=== PATIENT | female | born 1955 | race Caucasian/White ===

== ENCOUNTER 2019-07-09 14:29 | Inpatient (IN) ==
[2019-07-09] MEDS ORDERED: NS 1,000 ML IV ONE (15:07)
[2019-07-09 16:01] LABS: URINE SOURCE CLEAN CATCH
[2019-07-09 16:06] LABS: BASO# 0.03 X1000 (0.0-0.2); BASO% 0.2 % (0.0-0.8); EOS# 0.13 X1000 (0.0-0.7); EOS% 1.1 % (0.0-10.0); HEMATOCRIT 42.3 % (37.0-47.0); IMM GRAN# 0.04 X1000 (0.0-0.04); IMM GRAN% 0.3 % (0.0-0.5); LYMPH# 1.71 X1000 (1.2-3.4); LYMPH% 13.9 % (20.5-51.1); MCHC 33.1 g/dL (33-37); MCV 93.8 FL (81-99); MONO% 8.1 % (1.7-9.3); MPV 10.4 FL (7.4-10.4); NEUT# 9.39 X1000 (1.4-6.5); NEUT% 76.4 % (42.2-75.2); PLT 250 X1000 (130-400); RBC 4.51 XMIL (4.2-5.4)
[2019-07-09 16:07] LABS: BILIRUBIN URINE NEGATIVE (NEGATIVE); BLOOD URINE NEGATIVE (NEGATIVE); COLOR YELLOW; GLUCOSE URINE NEGATIVE (NEGATIVE); KETONE URINE NEGATIVE (NEGATIVE); NITRITE URINE NEGATIVE (NEGATIVE); PROTEIN URINE NEGATIVE (NEGATIVE); SP GRAVITY URINE 1.005; TURBIDITY URINE CLEAR (CLEAR); UROBILINOGEN URINE 2 mg/dL (NORMAL)
[2019-07-09 16:23] LABS: LEUKOCYTES URINE SMALL (NEGATIVE); UR EPITHELIAL CELLS <10 /HPF (<10); URINE BACTERIA NEGATIVE /HPF; URINE RBC <10 /HPF (<10); URINE WBC <10 /HPF (<10)
[2019-07-09 16:29] LABS: AGAP 17; ALB/GLOB RATIO 1.3; ALBUMIN 4.3 g/dL (3.5-5.0); ALKALINE PHOSPHATASE 125 U/L (32-104); AMYLASE 27 U/L (20-200); BUN 9 mg/dL (8-22); CALCIUM 9.8 mg/dL (8.8-10.2); CHLORIDE 95 mmol/L (98-107); COSMO 274; CREATININE 0.8 mg/dL (0.5-0.9); ESTIMATED GFR > 60; GLUCOSE 129 mg/dL (70-104); GOT 55 U/L (10-30); GPT 53 U/L (10-36); LIPASE 15 U/L (13-60); POTASSIUM 3.7 mmol/L (3.5-5.1); SODIUM 137 mmol/L (136-145); TCO2 25 mmol/L (25-35); TOTAL BILIRUBIN 1.21 mg/dL (0.20-1.00); TOTAL PROTEIN 7.6 g/dL (6.3-8.3)
--- NOTE | 2019-07-09 17:15 | Diag Imaging Result Doc PS360 ---
EXAM: CT ABD/PELVIS W/IV CONT ONLY 07/09/2019 HISTORY: acute RLQ pain, tachycardic; remote hyst'x TECHNIQUE: This exam was performed using automated exposure control, adjustment of mA or kV according to patient size, and/or use of iterative reconstruction technique. COMMENT: There are no previous studies available for comparison. There is no evidence of acute disease in the visualized portion of the chest. There is hepatic steatosis. The gallbladder is unremarkable in appearance. There is atherosclerotic calcification and minimal aneurysmal dilatation of the distal abdominal aorta to a maximum AP diameter of 2.1 cm. The renal pelves are somewhat prominent but there is no evidence of caliectasis. The spleen, adrenal glands, and pancreas are within normal limits. The appendix is normal in appearance. There is marked inflammatory change around the cecum however near the ileocecal valve which may be result of diverticulitis with a large fecalith. There is no discrete abscess. There is free fluid in the cul-de-sac. There has been previous hysterectomy. The urinary bladder is not distended. The regional skeleton is intact. IMPRESSION: Cecal diverticulitis. Electronically signed by Audi Jacobs 07/09/2019 5:13 PM
[2019-07-09] MEDS ORDERED: CIPRO 400 MG/D5W 400 MG/200 ML IVPB IV ONE (18:27)
[2019-07-09] MEDS ORDERED: FLAGYL 500 MG/NS 500 MG/100 ML IVPB IV ONE (18:27)
--- NOTE | 2019-07-09 18:27 | PROVIDER DOCUMENTATION ---
This chart was entered by Carol Andrade Scribe, acting as scribe for Thai Navarro MD. HPI-Abdominal Pain/GI Problem - General Chief Complaint: Abdominal Pain Stated Complaint: ABDOMINAL PAIN Time Seen by Provider: 07/09/19 15:06 Source: patient Allergies/Adverse Reactions: Patient Allergies Allergy/AdvReac Type Severity Reaction Status Date / Time adhesive tape AdvReac RASH Verified 07/09/19 15:00 Home Medications: Home Medication List Medication Instructions Recorded Confirmed Last Taken Type NK [No Home Medications] 07/09/19 07/09/19 Unknown History - History of Present Illness-ABD Nature of Presenting Problems: 63 yowf presents to the ed with c/o RLQ pain worses with palpation and ambulation. pt sts acute onset 4 days and has elevated BP on exam. pt denies any pmh. pt is nontoxic in appearance on exam BP as follows: 216/120 244/130 244/124 Abdominal Pain Onset Location: reports: RLQ Pain Radiation: reports: no radiation Quality of Pain: reports: sharp Severity in ED: reports: moderate Onset/Duration: reports: 4 days ago Timing: reports: still present, intermittent Activities at Onset: reports: light activity Exposure to sick contacts?: No Modifying Factors: worse with: movement, palpation, other (ambulation) Associated Symptoms: reports: other (elevated bP). denies: back/neck pain, chest pain, constipation, cough, diarrhea, fever/chills, nausea, shortness of b reath, vomiting Last BM: this morning Dark Stools Present?: reports: none noticed Rectal Bleeding: reports: none # of Diarrhea Episodes: 0 Rectal Pain: reports: none # of Vomiting Episodes: 0 Emesis Description: reports: none Bruising or Bleeding Gums?: No Similar Symptoms Previously?: No Recently seen or treated by another doctor?: No Review of Systems - Adult - REVIEW OF SYSTEMS - ADULT Constitutional: denies: chills, fever Eyes: reports: no symptoms reported Ears, Nose, Mouth & Throat: reports: no symptoms reported Cardiovascular: denies: chest pain, palpitations Respiratory: denies: cough, shortness of breath, wheezing Gastrointestinal: reports: see HPI, abdominal pain. denies: diarrhea, nausea, vomiting Genitourinary: reports: no symptoms reported Musculoskeletal: reports: no symptoms reported Integumentary: reports: no symptoms reported Neurological: denies: dizziness/vertigo, headache/migraines Psychiatric: reports: no symptoms reported Endocrine: reports: no symptoms reported Hematologic/Lymphatic: reports: no symptoms reported Allergic/Immunologic: reports: no symptoms reported All Other Systems: Reviewed and Negative Past History - Adult - PAST MEDICAL HISTORY-ADULT Review of Records: reports: Old Records Reviewed, Nursing Assessment Review, Medications Reviewed, Social history reviewed & non-contributory. Major Childhood Illnesses: reports: denies history Cardiovascular: reports: denies history Respiratory: reports: denies history Gastrointestinal: reports: denies history Obstetrical/Gynecological: reports: denies history Genitourinary: reports: denies history Musculoskeletal: reports: denies history Neurological: reports: denies history Endocrine/Immune: reports: denies history Other Conditions: reports: denies history - PRIOR SURGERIES/PROCEDURES Surgical/Procedure History: reports: hysterectomy - IMMUNIZATION STATUS Childhood Immunizations: See Nurse Assessment Flu Vaccine: See Nurse Assessment - FAMILY HISTORY Family History: reviewed, not pertinent - SOCIAL HISTORY Smoking: quit greater than 1 year Substance Use: denies Living Situation: family Physical Exam-General - PHYSICAL EXAM-ADULT Initial Vital Signs Reviewed: Yes (elevated BP and tachy ) - CONSTITUTIONAL General Appearance: appears well, alert, no apparent distress, obese - EYES Eyes: PERRL/EOMI, pink conjunctivae - HEAD, EARS, NOSE, MOUTH & THROAT HENMT: moist mucous membranes, normal ENT inspection - NECK Neck: non-tender, full range of motion, supple, normal inspection - RESPIRATORY Respiratory: chest non-tender, lungs clear, normal breath sounds - CARDIOVASCULAR Cardiovascular: normal peripheral pulses, tachycardia (129) - CHEST (BREASTS) Chest/Breast: deferred - GASTROINTESTINAL (ABDOMEN) Abdominal Exam: normal bowel sounds, soft, McBurney's point tenderness. negative: guarding, rigid, rebound - MUSCULOSKELETAL Back Exam: normal inspection, no CVA tenderness, no vertebral tenderness Extremity: normal range of motion, non-tender, normal inspection, normal capillary refill - SKIN Integumentary: normal color, normal turgor, warm/dry - NEUROLOGIC Neurologic: grossly normal - PSYCHIATRIC Psych/Mental Status: normal mood/affect, normal thought content, normal thought process, oriented x 3 Progress - PLAN OF CARE/RESULTS Progress/Plan/Lab Results: Vital Signs - 8 hr 07/09/19 14:35 Temperature 99.0 F Pulse Rate 129 H Respiratory Rate 18 Blood Pressure 195/126 O2 Sat by Pulse Oximetry 98 Orders Category Date Time Status Saline Loc DIRECTED Care 07/09/19 15:07 Active NPO Diet 07/09/19 15:[address] ABD/PELVIS W/IV CONT ONLY [CT] Stat Exams 07/09/19 15:24 Ordered AMYLASE [CHEM] Stat Lab 07/09/19 15:07 Uncollected CBC WITH ELECTRONIC DIFF [HEME] Stat Lab 07/09/19 15:07 Uncollected COMPREHENSIVE METABOLIC PANEL [CHEM] Stat Lab 07/09/19 15:07 Uncollected LIPASE [CHEM] Stat Lab 07/09/19 15:07 Uncollected URINALYSIS W/POSS RFLX CULT [URINALYSIS] Stat Lab 07/09/19 15:07 Uncollected 0.9% Sodium Chloride Inj [Ns] 1,000 ml Med 07/09/19 15:07 Active IV 500 mls/hr Result Diagrams: 07/09/19 15:45 07/09/19 15:45 - REASSESSMENT Reassessment #1 Time Reassessed: 18:25 Status: unchanged (pt has normal appendix but cecal diverticulitis on CT: HR remains signif elevated/do not feel initial OP Rx is reasonable option. will admit.) - EKG 1 Time of EKG reading by physician:: 14:57 EKG Read and Signed by:: Thai Navarro EKG Interpretation (*Must complete 3 of following elements*): Abnormal Rate: 120 Rhythm: ST w/ pac w/ aberrant conduction [place]: left (deviation) QRS: LVH, other (possible left atrial enlargement) NV Interval: normal ST Wave: normal Comments: cannot rule out septal infarct, age undetermined - CT/MRI 1 CT Study: Abdomen, Pelvis Impression: See EMR Report (EXAM: CT ABD/PELVIS W/IV CONT ONLY 07/09/2019 HISTORY: acute RLQ pain, tachycardic; remote hyst'x TECHNIQUE: This exam was performed using automated exposure control, adjustment of mA or kV according to patient size, and/or use of iterative reconstruction technique. COMMENT: There are no previous studies available for comparison. There is no evidence of acute disease in the visualized portion of the chest. There is hepatic steatosis. The gallbladder is unremarkable in appearance. There is atherosclerotic calcification and minimal aneurysmal dilatation of the distal abdominal aorta to a maximum AP diameter of 2.1 cm. The renal pelves are somewhat prominent but there is no evidence of caliectasis. The spleen, adrenal glands, and pancreas are within normal limits. The appendix is normal in appearance. There is marked inflammatory change around the cecum however near the ileocecal valve which may be result of diverticulitis with a large fecalith. There is no discrete abscess. There is free fluid in the cul-de-sac. There has been previous hysterectomy. The urinary bladder is not distended. The regional skeleton is intact. IMPRESSION: Cecal diverticulitis. Electronically signed by Audi Jacobs 07/09/2019 5:13 PM 07/09/19 1713 Interpreting Physician: Audi Jacobs MD Dictated Date/Time: 07/09/19 170 cc: Thai Navarro MD; None,PCP) - CONSULTS/PCP/HOSPITALIST Notification #1 *Consult/PCP/Hospitalist*: Shalini Time Discussed: 18:26 Consult Disposition: Admit Departure - Departure Date of Disposition Decision: 07/09/19 Time of Disposition Decision: 18:26 DIAGNOSIS: Cecal diverticulitis Disposition: ADMITTED INPATIENT 09 Certified Medical Emergency: Emergent Condition: Stable Referrals and Follow-Ups: None,PCP [Primary Care Provider] - - Critical Care Note This patient required my direct & personal management of CC.: No Attestation - Physician/ GLORIA Attestation Patient care was provided by Advanced Practice Provider:: No The physician spent face to face time with patient:: Yes Advanced Practice Provider documentation review:: Supervising physician onsite and consulted in the evaluation and care of this patient. The physician did have a face to face encounter with the patient. This chart was documented by the indicated scribe, (Carol Andrade Scribe) and accurately reflects the services I performed and decisions made by me, Thai Navarro MD, as attested by the provider's signature.
[2019-07-09] MEDS ORDERED: LABETALOL IV ONE ×2 (18:29→22:32)
[2019-07-09] MEDS ORDERED: MORPHINE IV PRN (18:37)
[2019-07-09] MEDS ORDERED: ZOFRAN IV PRN (18:37)
[2019-07-09] MEDS ORDERED: DILAUDID IV PRN (18:39)
[2019-07-09] MEDS ORDERED: SODIUM CHLORIDE 0.9% INJ SCH (18:45)
[2019-07-09] MEDS: NS 1,000 ML IV SCH (18:52)
[2019-07-09] MEDS: ZOSYN 3.375 GM in NS 50 ML IV SCH (18:53)
[2019-07-09] MEDS ORDERED: CARDENE 40 MG/NS 40 MG/200 ML PIGGYBACK IV SCH (19:00)
[2019-07-09] MEDS ORDERED: NORVASC PO ONE (22:48)
--- NOTE | 2019-07-10 03:04 | EKG Report ---
Test Performed on : 07/09/2019 2:57:48 PM Test Reason : new admit Blood Pressure : / mmHG Vent. Rate : 120 BPM Atrial Rate : 120 BPM P-R Int : 156 ms QRS Dur : 076 ms QT Int : 314 ms P-R-T Axes : 071 -36 046 degrees QTc Int : 443 ms Sinus tachycardia. with premature atrial complexes. with aberrant conduction. Possible Left atrial enlargement Left axis deviation Left ventricular hypertrophy Cannot rule out Septal infarct , age undetermined Abnormal ECG No previous ECGs available Unconfirmed Result
[2019-07-10 04:47] LABS: BASO# 0.03 X1000 (0.0-0.2); BASO% 0.3 % (0.0-0.8); EOS% 1.1 % (0.0-10.0); HEMATOCRIT 36.9 % (37.0-47.0); HEMOGLOBIN 12.1 g/dL (12.0-16.0); LYMPH# 1.48 X1000 (1.2-3.4); LYMPH% 16.2 % (20.5-51.1); MCH 31.3 PG (27-31); MCHC 32.8 g/dL (33-37); MCV 95.3 FL (81-99); MONO# 0.68 X1000 (0.11-0.59); MONO% 7.5 % (1.7-9.3); MPV 10.5 FL (7.4-10.4); NEUT# 6.83 X1000 (1.4-6.5); NEUT% 74.9 % (42.2-75.2); PLT 224 X1000 (130-400); RBC 3.87 XMIL (4.2-5.4); RDW 11.9 % (11.5-14.5); WBC 9.12 X1000 (4.8-10.8)
[2019-07-10 04:56] LABS: HEMOGLOBIN A1C 5.2 % (4.8-6.0)
[2019-07-10 04:57] LABS: AGAP 14; ALB/GLOB RATIO 1.3; ALBUMIN 3.7 g/dL (3.5-5.0); ALKALINE PHOSPHATASE 111 U/L (32-104); BUN 8 mg/dL (8-22); CALCIUM 8.9 mg/dL (8.8-10.2); CHLORIDE 101 mmol/L (98-107); CHOLESTEROL 222 mg/dL (0-200); COSMO 279; CREATININE 0.7 mg/dL (0.5-0.9); ESTIMATED GFR > 60; GLUCOSE 122 mg/dL (70-104); GOT 46 U/L (10-30); GPT 59 U/L (10-36); HDL 60 mg/dL (45-65); LDL 134 mg/dL; MAGNESIUM 1.9 mg/dL (1.5-2.7); POTASSIUM 3.7 mmol/L (3.5-5.1); SODIUM 140 mmol/L (136-145); TCO2 25 mmol/L (25-35); TOTAL BILIRUBIN 0.71 mg/dL (0.20-1.00); TOTAL PROTEIN 6.5 g/dL (6.3-8.3); TRIGLYCERIDES 140 mg/dL (35-135); VLDL 28 mg/dL
[2019-07-10] MEDS: ZOSYN 3.375 GM in NS 50 ML IV SCH ×4 (06:30→20:46)
[2019-07-10] MEDS: NS 1,000 ML IV SCH ×4 (06:51→20:47)
--- NOTE | 2019-07-10 07:03 | HISTORY AND PHYSICAL ---
PRIMARY CARE PROVIDER: None. CHIEF COMPLAINT: Abdominal pain. HISTORY OF PRESENT ILLNESS: Ms. Muñoz is a 63-year-old female who reports her only past medical history is being diagnosed with high cholesterol 20 years ago, and she has not really seen a doctor since. She reported on Thursday evening, she ate some vegetable soup. She started having some abdominal pain that felt like trapped gas. This progressed to a right lower quadrant pain that developed into a sharp pain. She came to the ED to be evaluated. She had a white count of 12, transaminitis. CT of the abdomen and pelvis showed a cecal diverticulitis. She was also tachycardic and hypertensive, 220s/120s. We will initiate her on Zosyn, do a dose of IV labetalol, and initiate her on a Cardene drip. Continue n.p.o., IV fluids. Check a hepatitis profile. She denies any headache, chest pain, shortness of breath, palpitation, nausea, vomiting, diarrhea, constipation. No bright red or dark tarry stools. She reports her last BM was normal and formed this a.m. She had some subjective fevers last night. She has had some chills. REVIEW OF SYSTEMS: A 12-point review of systems was complete and negative, except for those mentioned in the HPI. PAST MEDICAL HISTORY: 1. Hyperlipidemia. 2. Ex tobacco use. PAST SURGICAL HISTORY: 1. Right breast lumpectomies. 2. Vaginal hysterectomy. FAMILY HISTORY: Unknown. The patient is adopted. SOCIAL HISTORY: She has a boyfriend of 23 years at the bedside. She is an ex- smoker of half a pack per day for 20 to 30 years. She quit 3-1/2 years ago. She does drink the occasional beer. No marijuana or illicit drug use. ALLERGIES: Adhesive tape. HOME MEDICATIONS: She has reported some occasional [id number] vitamins from [id number]. PHYSICAL EXAMINATION: VITAL SIGNS: Initial temperature is 99 degrees, initial heart rate was 129, respirations 18, blood pressure 222/125, O2 is 98% on room air. GENERAL: Ms. Muñoz is a pleasant, 63-year-old, female, who is sitting up in the bed in no acute distress. HEENT: Atraumatic, normocephalic. PERRL. NECK: Supple. Trachea midline. CARDIOVASCULAR: Tachycardic. S1, S2 appreciated. No murmurs, gallops, rubs noted. RESPIRATORY: Lung sounds are clear bilaterally. GASTROINTESTINAL: Soft. Tender to all quadrants. Extremely tender to her upper and right lower quadrant. SKIN: Warm, dry, and intact. NEUROLOGIC: No focal deficits noted. DIAGNOSTIC DATA: Abdomen and pelvis CT: Cecal diverticulitis. LABORATORY DATA: White count 12, hemoglobin and hematocrit 14 and 42, platelet count 250,000. Sodium 137, potassium 3.7, BUN 9, creatinine 0.8, blood glucose is 129. T bilirubin 1.21, AST 55, ALT 57, alkaline phosphatase 125. ASSESSMENT AND PLAN: 1. Cecal diverticulitis. Will initiate her on intravenous Zosyn and oral pain regimen, intravenous fluids. 2. Accelerated hypertension. Will give her a dose of intravenous labetalol, start her on a Cardene drip, place her in the intensive care unit. Will check an echocardiogram as well as an electrocardiogram. 3. Transaminitis. Will check a hepatitis profile. Further recommendations to follow physician evaluation, laboratory and diagnostic data. Dictated by IBETH Vega for Selena Blackwell MD cc: Selena Blackwell MD I performed a face to face encounter on the patient. I reviewed all labs and imaging on the patient. I agree with the H&P as dictated. [facility]
[2019-07-10] MEDS: PROTONIX IV SCH (09:08)
[2019-07-10] MEDS: HYDROCHLOROTHIAZIDE PO SCH (09:08)
[2019-07-10] MEDS: LOVENOX SUBQ SCH (09:08)
[2019-07-10] MEDS: COREG PO SCH ×2 (09:08→20:46)
[2019-07-10] MEDS ORDERED: COZAAR PO ONE (17:08)
--- NOTE | 2019-07-10 20:59 | PROGRESS NOTE ---
DATE: 07/10/2019 SUBJECTIVE: Today, Ms. Muñoz refers to be doing fairly okay. Denies actually any pain. She did, however, say that she has had 2 bowel movements today which is diarrhea. OBJECTIVE: Vital signs: Blood pressure is 176/76, pulse of 94, respirations 20, temperature is 98.2 degrees. General: Ms. Smiley is a 63-year-old female. She is in bed in no distress. HEENT: Mucosa is pink and moist. Anicteric. Acyanotic. Neck: Supple. Chest: Clear to auscultation. No crepitations. No rhonchi. Cardiovascular: Regular rate and rhythm. There is no murmurs, no rubs, no gallops. GI: Abdomen is soft, nontender. Bowel sounds present. Extremities: No pedal edema. WELDER AND FITTER: Patient is awake, alert, oriented. There is no focal neurological deficit. LABORATORIES: So far blood cultures have been pending. Urine culture is no growth. ASSESSMENT: 1. Cecal diverticulitis. Patient is currently on antibiotics. 2. Severe uncontrolled hypertension. The patient has been started back on oral antihypertensive medications. We will add losartan for a better blood pressure control. 3. Mildly elevated liver enzymes. We will check on her hepatitis panel. 4. Elevated TSH. We will repeat this with a free T4 tomorrow. 5. Diarrhea. I think this is probably due to the current antimicrobial therapy. We will, however, sample the stool to rule out any infectious pathogen. PLAN: I have explained to Ms Muñoz that she is going to need to be on antibiotics for a total of 10 days and after which she will need to follow up with Gastroenterology for possible colonoscopy at a later date once the inflammation and diverticulitis is resolved. cc: Patricio Wallace MD
[2019-07-10] MEDS ORDERED: NORVASC PO ONE (22:31)
[2019-07-11] MEDS: NS 1,000 ML IV SCH ×2 (00:59→04:45)
[2019-07-11] MEDS: ZOSYN 3.375 GM in NS 50 ML IV SCH ×2 (02:22→08:35)
[2019-07-11 05:33] LABS: AGAP 13; ALB/GLOB RATIO 1.3; ALBUMIN 3.6 g/dL (3.5-5.0); ALKALINE PHOSPHATASE 111 U/L (32-104); BUN 5 mg/dL (8-22); CALCIUM 8.4 mg/dL (8.8-10.2); CHLORIDE 104 mmol/L (98-107); COSMO 279; CREATININE 0.7 mg/dL (0.5-0.9); ESTIMATED GFR > 60; GLUCOSE 113 mg/dL (70-104); GOT 32 U/L (10-30); GPT 57 U/L (10-36); POTASSIUM 3.4 mmol/L (3.5-5.1); SODIUM 141 mmol/L (136-145); TCO2 24 mmol/L (25-35); TOTAL BILIRUBIN 0.74 mg/dL (0.20-1.00); TOTAL PROTEIN 6.3 g/dL (6.3-8.3)
[2019-07-11 05:42] LABS: FREE T4 1.19 ng/dL (0.93-1.70)
[2019-07-11 05:45] LABS: TSH 7.22 uIUmL (0.27-4.20)
[2019-07-11] MEDS: PROTONIX IV SCH (06:05)
[2019-07-11 07:45] VITALS: BP 181/82
[2019-07-11] MEDS: COREG PO SCH (08:34)
[2019-07-11] MEDS: HYDROCHLOROTHIAZIDE PO SCH (08:34)
[2019-07-11] MEDS: LOVENOX SUBQ SCH (08:35)
[2019-07-11] MEDS ORDERED: COZAAR PO SCH (09:00)
[2019-07-11 11:23] LABS: HEPATITIS PROFILE ACUTE SEE COMMENTS
--- NOTE | 2019-07-11 15:41 | ECHO REPORT ---
ORDER DATE: 07/10/2019 INTERPRETING PHYSICIAN: Dr. Osei Latif ECHOCARDIOGRAPHIC MEASUREMENTS: 1. Interventricular septum 1.1. 2. Left ventricular posterior wall 1.1. 3. Diastolic diameter 4.2. 4. Left atrium 3.7. 5. Aorta 2.8. SUMMARY OF THE 2-DIMENSIONAL IMAGIN. Aortic valve leaflets are trileaflet. 2. Pulmonic valve was normal. 3. Tricuspid valve was normal. 4. Mitral valve was normal. 5. There is mild mitral regurgitation. There is left atrial enlargement. 6. Peak velocity across the aortic valve less than 2 m/sec. There is no aortic stenosis or regurgitation. 7. Mild tricuspid regurgitation. Peak velocity across the tricuspid valve was 2.2 m/sec. Normal left ventricular cavity size. Estimated ejection fraction of 65%. There is grade 1 diastolic dysfunction. 8. There is no pericardial effusion or obvious intracardiac mass or thrombus seen. cc: Osei Latif MD
[2019-07-12 12:05] LABS: HEPATITIS PROFILE ACUTE SEE COMMENTS
--- NOTE | 2019-07-13 07:28 | DISCHARGE SUMMARY ---
ADMISSION DATE: 07/09/2019 DISCHARGE DATE: 07/11/2019 DISPOSITION: Home. FOLLOWUP: Will be with Dr. Pleitez. CONSULTATION DURING THIS ADMISSION: None. IMAGING STUDIES OF SIGNIFICANCE: A CT scan of the abdomen and pelvis with IV contrast showed a cecal diverticulitis. ADMISSION DIAGNOSES: 1. Cecal diverticulitis. 2. Accelerated hypertension. 3. Transaminitis. DIAGNOSES AT THE TIME OF DISCHARGE: 1. Cecal diverticulitis. 2. Severe uncontrolled hypertension. 3. Mildly elevated liver enzymes. 4. Subclinical hypothyroidism. The patient has been advised to follow up. 5. Diarrhea secondary to antibiotic side effects, improved. DISCHARGE MEDICATIONS: 1. Carvedilol 12.5 p.o. daily. 2. Losartan mg p.o. daily. 3. Hydrochlorothiazide 25 mg p.o. daily. 4. Levaquin 500 p.o. daily. 5. Pantoprazole 40 mg p.o. daily. 6. Lactobacillus 1 tablet daily. 7. Metronidazole 250 p.o. 3 times per day. PRESENTING COMPLAINT: Abdominal pain. HISTORY OF PRESENTING COMPLAINT: Ms. Muñoz is a 63-year-old female with a history of dyslipidemia who came to the emergency department because of abdominal pain for a couple of days. She was evaluated and was found to have cecal diverticulitis. She was also found to be extremely hypertensive with a blood pressure of 220/120. She is known to have sporadic blood pressures, but she is not on any medication. Ms. Muñoz was subsequently admitted for medical care. HOSPITAL COURSE: Ms. Muñoz was started on IV broad-spectrum antibiotics, kept n.p.o. initially because of severe abdominal pain, was fluid resuscitated, and blood pressure medications were started. During the hospital course, Ms. Muñoz improved, abdominal pain resolved. She did have some diarrhea, which Clostridium difficile was done, but it was negative. We thought that this was related to antibiotic side effects. Ms. Muñoz was advanced to GI soft diet, which she tolerated. Her blood pressures were also improved with initiation of antihypertensive medications, all of which were discussed thoroughly with Ms. Muñoz. On the day of discharge, Ms. Muñoz referred to be feeling a lot better. Abdominal pain is resolved. No new complaints. Her vital signs at the time of discharge, blood pressure was 181/82, pulse of 90, respirations 16, temperature 98.3 degrees. Her physical exam for the most part was unremarkable. No more abdominal tenderness. Bowel sounds present. DISCHARGE INSTRUCTIONS: Ms. Muñoz has been advised to follow up with Dr. Pleitez at the end of her antimicrobial therapy for possible colonoscopy. All the discharge instructions were discussed with her and she voiced understanding. TIME SPENT: The time spent for discharge is 37 minutes. cc: Patricio Wallace MD
== END 2019-07-11 10:33 | disposition home or self-care (01) | DRG 392 ==
LOC: EDBD → ED 14:29 → MERGE 18:46 → EDIPHOLD 18:46 → SUATTDRO 18:46 → 2N 07-10 13:04
PROVIDERS: ATTEND Internal Medicine

== ENCOUNTER 2019-08-24 21:12 | Inpatient (IN) ==
[2019-08-24] MEDS ORDERED: PROTONIX IV ONE (21:40)
[2019-08-24] MEDS ORDERED: SODIUM CHLORIDE 0.9% INJ ONE (21:40)
[2019-08-24 22:23] LABS: INR 0.94; PROTIME 12.6 Seconds (11.0-16.0)
[2019-08-24 22:24] LABS: PTT 37.4 Seconds (22.3-41.8)
[2019-08-24 22:42] LABS: BASO# 0.17 X1000 (0.0-0.2); BASO% 1.8 % (0.0-0.8); EOS# 0.16 X1000 (0.0-0.7); EOS% 1.6 % (0.0-10.0); HEMATOCRIT 32.3 % (37.0-47.0); HEMOGLOBIN 10.8 g/dL (12.0-16.0); IMM GRAN# 0.03 X1000 (0.0-0.04); IMM GRAN% 0.3 % (0.0-0.5); LYMPH# 2.51 X1000 (1.2-3.4); LYMPH% 25.8 % (20.5-51.1); MCH 30.7 PG (27-31); MCHC 33.4 g/dL (33-37); MCV 91.8 FL (81-99); MONO# 0.71 X1000 (0.11-0.59); MONO% 7.3 % (1.7-9.3); MPV 10.4 FL (7.4-10.4); NEUT# 6.13 X1000 (1.4-6.5); NEUT% 63.2 % (42.2-75.2); PLT 351 X1000 (130-400); RBC 3.52 XMIL (4.2-5.4); RDW 11.7 % (11.5-14.5); WBC 9.71 X1000 (4.8-10.8)
[2019-08-24 22:43] LABS: ESTIMATED GFR > 60
[2019-08-24 22:45] LABS: SODIUM 126 mmol/L (136-145)
[2019-08-24 22:46] LABS: AGAP 11; ALB/GLOB RATIO 1.6; ALKALINE PHOSPHATASE 76 U/L (32-104); BUN 13 mg/dL (8-22); CALCIUM 9.5 mg/dL (8.8-10.2); CHLORIDE 89 mmol/L (98-107); COSMO 258; CREATININE 0.6 mg/dL (0.5-0.9); GLUCOSE 182 mg/dL (70-104); GOT 25 U/L (10-30); GPT 36 U/L (10-36); LIPASE 25 U/L (13-60); POTASSIUM 4.4 mmol/L (3.5-5.1); TCO2 26 mmol/L (25-35); TOTAL BILIRUBIN 0.61 mg/dL (0.20-1.00); TOTAL PROTEIN 6.5 g/dL (6.3-8.3)
--- NOTE | 2019-08-25 03:55 | HISTORY AND PHYSICAL ---
PRIMARY CARE PHYSICIAN: None. CHIEF COMPLAINT: Rectal bleeding. HISTORY OF PRESENTING ILLNESS: A 63-year-old female with a history of hypertension, recently underwent colonoscopy with polyp removal earlier this week. Presented to emergency department with complaint of having reddish dark blood for the past day or so. She states that she was not feeling well and subsequently had come to the emergency department. In the ED, she was evaluated. Due to her presenting symptoms she will require admission for further management. At the time of my examination, patient denied any headache, fever, chills, nausea, vomiting, diarrhea, hemoptysis, nausea, vomiting, diarrhea, or any weight changes, but complained of rectal bleeding. PAST MEDICAL HISTORY: Includes hypertension. PAST SURGICAL HISTORY: Hysterectomy, right breast lumpectomy. ALLERGIES: No known drug allergies. CURRENT MEDICATIONS: Include carvedilol 12.5 mg p.o. b.i.d., losartan HCT 320-25, one p.o. daily. SOCIAL HISTORY: She is a former smoker. History of social alcohol use. Denies any illicit drug use. FAMILY HISTORY: No history of coronary disease. REVIEW OF SYSTEMS: Fourteen point review of system is as in HPI. Other systems negative. PHYSICAL EXAMINATION: GENERAL: Cooperative, friendly female, she is resting more comfortably now. VITAL SIGNS: Temperature 97.4 degrees, pulse 73, respirations 16, blood pressure 164/77. HEENT: Atraumatic, normocephalic. Extraocular movements intact. PERRLA. NECK: Supple. CHEST: Clear to auscultation. CARDIOVASCULAR: Regular rate and rhythm. ABDOMEN: Soft. Positive bowel sounds. EXTREMITIES: No edema. NEUROLOGIC: She is awake, alert, oriented x3. GENITOURINARY: No bladder distention. SKIN: Warm. LABORATORIES AND STUDIES: WBCs 9.71, hemoglobin 10.8, hematocrit 32.3, platelets 351,000. Sodium 136, potassium 4.4, chloride 89, CO2 is 26, BUN is 13, creatinine 0.6. Glucose is 182. ASSESSMENT: A 63-year-old female with a history of hypertension who recently underwent a colonoscopy with polyp removal earlier this week, presented to emergency department with complaint of rectal bleeding. She was evaluated in the emergency department. Due to her presenting symptoms she will require admission for further management. 1. Probable lower gastrointestinal bleed. 2. Hypertension. PLAN: 1. We will admit patient to medical floor with telemetry. 2. We will keep patient NPO. Continue with IV fluids. 3. We will consult Gastroenterology. 4. We will monitor hemoglobin and hematocrit closely. 5. Continue patient on PPI. 6. We will monitor blood pressure and resume antihypertensive agents. 7. Put patient on DVT prophylaxis with SCDs. 8. We will continue to follow, reassess and make further recommendation based on patient's clinical course. cc: Bautista Sanford MD
[2019-08-25] MEDS ORDERED: ZOFRAN IV PRN (04:14)
[2019-08-25] MEDS ORDERED: SODIUM CHLORIDE 0.9% INJ SCH (04:14)
[2019-08-25] MEDS: PROTONIX IV SCH (05:20)
[2019-08-25] MEDS: NS 1,000 ML IV SCH ×2 (05:21→20:39)
[2019-08-25 06:12] LABS: URINE SOURCE CLEAN CATCH
--- NOTE | 2019-08-25 06:28 | Diag Imaging Result Doc PS360 ---
CT ABD/PELVIS W/IV CONT ONLY - 08/24/2019 INDICATION: lower GI bleed COMPARISON: 07/09/2019 FINDINGS: The lung bases are clear and the heart size is normal. The nasogastric tube tip is at the gastroesophageal junction. The liver, gallbladder, spleen, pancreas, adrenals, and kidneys are normal. There has been essentially complete resolution of the cecal diverticulitis. No new abnormalities. Normal appendix. There are numerous diverticula diffusely throughout the colon, including numerous right colonic diverticula. No free air or free fluid. Uterus is absent. Urinary bladder and rectum are normal. Stable severe vascular disease of the aorta and pelvic branches, with severe involvement of the iliac artery systems. 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 Bones are intact and well mineralized. IMPRESSION: 1. Essentially complete resolution of the cecal diverticulitis. Diffuse diverticulosis throughout the colon. 2. Nasogastric tube tip is right at the gastroesophageal junction. This exam was performed using automated exposure control, adjustment of mA or kV according to patient size, and/or use of iterative reconstruction technique Electronically signed by Dayne Holman 08/25/2019 6:26 AM
[2019-08-25 07:06] LABS: BILIRUBIN URINE NEGATIVE (NEGATIVE); BLOOD URINE SMALL (NEGATIVE); COLOR YELLOW; GLUCOSE URINE NEGATIVE (NEGATIVE); KETONE URINE NEGATIVE (NEGATIVE); LEUKOCYTES URINE NEGATIVE (NEGATIVE); NITRITE URINE NEGATIVE (NEGATIVE); PROTEIN URINE TRACE mg/dL (NEGATIVE); TURBIDITY URINE CLEAR (CLEAR); UROBILINOGEN URINE NORMAL (NORMAL)
[2019-08-25 07:08] LABS: UR EPITHELIAL CELLS <10 /HPF (<10); URINE BACTERIA NEGATIVE /HPF; URINE RBC <10 /HPF (<10); URINE WBC <10 /HPF (<10)
[2019-08-25 07:32] LABS: SP GRAVITY URINE 1.015
[2019-08-25] MEDS: COREG PO SCH ×2 (08:10→20:39)
[2019-08-25 09:24] LABS: ESTIMATED GFR > 60
[2019-08-25 09:27] LABS: AGAP 12; BUN 10 mg/dL (8-22); CALCIUM 9.2 mg/dL (8.8-10.2); CHLORIDE 87 mmol/L (98-107); COSMO 255; CREATININE 0.6 mg/dL (0.5-0.9); GLUCOSE 148 mg/dL (70-104); POTASSIUM 3.8 mmol/L (3.5-5.1); SODIUM 126 mmol/L (136-145); TCO2 27 mmol/L (25-35)
[2019-08-25 09:51] LABS: HEMATOCRIT 32.5 % (37.0-47.0); HEMOGLOBIN 11.2 g/dL (12.0-16.0); MCH 31.1 PG (27-31); MCHC 34.5 g/dL (33-37); MCV 90.3 FL (81-99); RBC 3.6 XMIL (4.2-5.4); RDW 12.4 % (11.5-14.5); WBC 8.86 X1000 (4.8-10.8)
--- NOTE | 2019-08-25 15:33 | GASTROENTEROLOGY CONSULTATION ---
DATE: 08/25/2019 REASON FOR CONSULT: GI bleed. HISTORY OF PRESENT ILLNESS: Ms. Muñoz is a 63-year-old female with a history of hypertension who presented to the E.R. with complaints of stomach pain that started yesterday at around 4 o'clock. She rated her pain as 8 out of 10 and she felt like she had a lot of pressure on her abdomen. At around 7 o'clock she noted that she had liquid stools, a total of 3 bowel movements, and she noticed that there was blood in her stool which was dark and tarry. The patient did mention that she had a kidney becker salad which she thought that it was a high fiber diet but that was the only thing that she has eaten that has caused her to have abdominal pain and diarrhea. The patient denied having any nausea or vomiting. The patient occasionally takes Advil for pain. The patient was recently seen by Dr. Pleitez and he did a colonoscopy on her on 08/22/2019. She had a single pedunculated polyp which was found in the ascending colon, polypectomy performed. A single sessile polyp was found in the sigmoid colon and polypectomy was done. Mild diverticulosis was found in the ascending colon and the descending colon. The patient was discharged home and she was advised to start on a high fiber diet and colonoscopy was recommended in 3 years. The patient denied noticing any current bleeding today but she still has abdominal pain which is generalized. An NG tube was placed in the E.R. The patient did not have any output from the NG tube. PAST MEDICAL HISTORY: Hypertension. PAST SURGICAL HISTORY: Hysterectomy and right breast lumpectomy. ALLERGIES: The patient is allergic to adhesive tapes. SOCIAL HISTORY: She is single. She has 2 kids. She used to smoke half a pack per day of cigarettes but has given it up for the last 4 years. She drinks alcohol occasionally. She denies any illicit drugs. FAMILY HISTORY: The patient is adopted so she does not know anything about her parents. HOME MEDICATIONS: Valsartan hydrochlorothiazide 320 mg/25 mg one tablet daily and Coreg 12.5 mg p.o. twice a day. REVIEW OF SYSTEMS: As per the HPI, otherwise a 12 point review of systems is negative. PHYSICAL EXAMINATION: Vital Signs: Temperature 97.4, pulse 78, respirations 12, blood pressure 140/59, and oxygen saturation 100% on room air. The patient's weight is 167 pounds. BMI is 30.6 kg/m2. General: She is alert and oriented times 3, in no acute distress, and answering questions appropriately. HEENT: Pale conjunctivae. No icterus. PERRL. NG tube in place. Neck: Supple. Lungs: Clear to auscultation. Cardiovascular: Regular rate and rhythm. Abdomen: Soft, mildly distended, and tender. Active bowel sounds are heard in all 4 quadrants. Extremities: No clubbing. No cyanosis. No edema. Pedal pulses 2+ and present bilaterally. Neurological: Alert and oriented times 3. Nonfocal. Cranial nerves 2 through 12 grossly intact. LABS: WBC is 8.6, RBC 3.6, hemoglobin 11.2, hematocrit 32.5, and platelet count is 247. PT is 12.6 and INR 0.94. Sodium is 136, potassium 3.8, chloride 87, carbon dioxide 27, anion gap 12, BUN 10, creatinine 0.6, glucose 148, and calcium 9.2. Urinalysis showed trace protein and a small amount of blood. IMAGING: Abdominal and pelvic CT showed essentially complete resolution of the cecal diverticulosis, diffuse diverticulosis throughout the colon, and NG tube tip inside of the GE junction. IMPRESSION: 1. Rectal bleeding, dark stools. 2. Abdominal pain. 3. Diverticulosis. 4. History of polyps. 5. Anemia. PLAN: Ms. Muñoz is a 63-year-old female with a history of hypertension. GI has been consulted for a GI bleed and abdominal pain. The patient is currently NPO we will take her NG tube out and start her on clear liquids. She is receiving Protonix IV daily. The patient has denied any further bleeding episodes. Her hemoglobin and hematocrit today are 11.2 and 32.2. The patient is hemodynamically stable. We plan to do an EGD tomorrow to find out the cause of her bleeding. We have discussed the risks, benefits, and alternatives of the procedure with the patient and family and they acknowledge understanding of the plan of care. Further plan of care will be based on the EGD findings. This plan was discussed with Dr. West. Thank you for your consult. Please call us for any further questions or concerns. Dictated by IBETH Foster for Natan West MD cc: Natan West MD I have seen and examined the patient myself and I agree with the above plan of care. Please call us with any questions or concerns. MTDD
[2019-08-26] MEDS: PROTONIX IV SCH (03:47)
[2019-08-26] MEDS ORDERED: DIPRIVAN 1% ONE (06:55)
[2019-08-26] MEDS ORDERED: MYLICON DROPS ONE (07:08)
--- NOTE | 2019-08-26 07:28 | PROGRESS NOTE ---
DATE: 08/26/2019 SUBJECTIVE: Patient reports feeling fine. No more episodes of bloody stools. No hematemesis or melena. OBJECTIVE: Vital Signs: Temperature 97.6, heart rate 109, respiratory rate 16, blood pressure 137/58, and O2 saturation 96% on room air. General Examination: This is a 63-year-old female lying in bed, in no acute distress. Cardiovascular: S1, S2 heard. No murmurs, gallops, or rubs. Regular rate and rhythm. Respiratory: Clear bilaterally to auscultation. No work of breathing or using accessory muscles. Abdomen: Soft. Nontender to palpation. Bowel sounds present. No organomegaly. Extremities: No clubbing, cyanosis, or edema. Peripheral pulses present in both legs. Neurological: Patient alert and oriented x3. Moves 4 extremities. LABORATORY DATA: Reviewed. ASSESSMENT AND PLAN: 1. Possible lower gastrointestinal bleeding. The patient has been seen by Gastrointestinal and they are planning to do upper endoscopy today. We will see what it shows. She had a recent colonoscopy today. 2. Hypertension. Blood pressure is under control. We will continue with the same management. 3. Disposition. The patient is going to be discharged once she is cleared by gastrointestinal. cc: Kenton Liz MD
[2019-08-26 07:43] LABS: BASO# 0.03 X1000 (0.0-0.2); BASO% 0.6 % (0.0-0.8); EOS% 2.1 % (0.0-10.0); HEMATOCRIT 26.6 % (37.0-47.0); HEMOGLOBIN 8.9 g/dL (12.0-16.0); LYMPH# 1.67 X1000 (1.2-3.4); LYMPH% 34.8 % (20.5-51.1); MCH 30.6 PG (27-31); MCHC 33.5 g/dL (33-37); MCV 91.4 FL (81-99); MONO# 0.27 X1000 (0.11-0.59); MONO% 5.6 % (1.7-9.3); MPV 9.9 FL (7.4-10.4); NEUT# 2.73 X1000 (1.4-6.5); NEUT% 56.9 % (42.2-75.2); PLT 221 X1000 (130-400); RBC 2.91 XMIL (4.2-5.4)
[2019-08-26 08:13] LABS: AGAP 10; BUN 6 mg/dL (8-22); CALCIUM 8.1 mg/dL (8.8-10.2); CHLORIDE 99 mmol/L (98-107); COSMO 271; CREATININE 0.6 mg/dL (0.5-0.9); ESTIMATED GFR > 60; GLUCOSE 117 mg/dL (70-104); POTASSIUM 3.7 mmol/L (3.5-5.1); SODIUM 136 mmol/L (136-145); TCO2 27 mmol/L (25-35)
--- NOTE | 2019-08-26 08:54 | ENDOSCOPY OPERATIVE NOTE ---
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 Patient reports having burgundy stools. No rectal bleeding for last two days. PROCEDURE PERFORMED: EGD w/ biopsy MEDICATIONS: Per Anesthesia ESTIMATED BLOOD LOSS: None CONSENT: The patient understands the risks and benefits of the procedure and understands that these r isks include, but are not limited to: sedation, allergic reaction, infection, perforation and/or bleeding. Alternative means of evaluation and treatment include, among others: physical exam, x-rays, and/or surgical intervention. The patient elects to proceed with this endoscopic procedure. DESCRIPTION OF PROCEDURE: During pre-op preparation period all mechanical and medical equipment was c hecked for proper function. Hand hygiene and appropriate measures for infection prevention was taken. After the risks, benefits and alternatives of the procedure were thoroughly explained, Informed consent was verified, confirmed and timeout was successfully executed by the treatment team. The patient was anesthetized with topical anesthesia and the [id number] ([id number]) endoscope was introduced through the mouth and advanced to the second portion of the duoden um. Retroflexion was performed in the stomach and revealed no abnormalities. The gastroscope was then slowly withdraw n and removed. The patient's toleration of the procedure was excellent. ESOPHAGUS: Esophagitis was found in the lower third of the esophagus. Esophagitis was LA Class A: On e or more mucosal breaks < 5 mm in maximal length. A biopsy was performed using cold forceps. Sample sent for histolo gy. The z-line was noted at 40cm from the incisors. The z-line appeared irregular. STOMACH: The stomach was normal. DUODENUM: The duodenum was normal. ADVERSE EVENTS: There were no complications. IMPRESSIONS: 1. Esophagitis in the lower third of the esophagus; biopsy was performed 2. The z-line was noted at 40cm from the incisors 3. The stomach was normal 4. The duodenum was normal RECOMMENDATIONS: 1. Await biopsy results 2. Start pantoprazole 40mg PO BID, continue for 3 months, then once daily 3. Advance diet as tolerated 4. Will sign off. Patient ok to be discharged with follow-up in 3 months. REPEAT EXAM: Oscar Pleitez MD eSigned: Oscar Pleitez MD 08/26/2019 8:53 AM CC: CPT CODES: 67748 Upper gastrointestinal endoscopy including esophagus, stomach, and either the du odenum and/or jejunum as appropriate; with biopsy, single or multiple ICD CODES: 578.1 Blood in stool 530.10 Esophagitis,unspecified The ICD and CPT codes recommended by this software are interpretations from the data that the [facility] staff has captured with the software. The verification of the translation of this report to the ICD and CPT co adriana and modifiers is the sole responsibility of the health care institution and practicing physician where this report was generated. [employer] will not be held responsible for the validity of the ICD and CPT codes i ncluded on this report. AMA assumes no liability for data contained or not contained herein. CPT is a registered tra demark of the [employer]. PATIENT NAME: Darya Muñoz MR#: [id number]
[2019-08-26] MEDS ORDERED: XYLOCAINE-MPF 2% ONE (08:55)
[2019-08-26] MEDS: COREG PO SCH (09:16)
[2019-08-26 10:57] VITALS: BP 136/64
[2019-08-26] MEDS ORDERED: PROTONIX PO SCH (21:00)
--- NOTE | 2019-08-29 16:44 | DISCHARGE SUMMARY ---
ADMISSION DATE: 08/25/2019 DISCHARGE DATE: 08/26/2019 DISCHARGE DIAGNOSES: 1. Gastrointestinal bleed secondary to polypectomy. 2. Hypertension. CONSULTATIONS: Dr. Natan West from GI. PROCEDURES: 1. CT of abdomen and pelvis showed essentially complete resolution of cecal diverticulitis with diffuse diverticulosis throughout the colon. 2. EGD showed esophagitis in the lower third of the esophagus. Stomach was normal and duodenum was normal. HOSPITAL COURSE: This is a 63-year-old female with a past medical history of hypertension, who recently underwent colonoscopy with polyp removal earlier this week, who presented to the emergency department complaining of having reddish and dark blood for the past day or so. So she was admitted to the hospital for evaluation. She was seen by Dr. West who scheduled an endoscopy for her. Apparently that bleeding was secondary to polypectomy. Her hemoglobin has been stable. EGD was normal, so Gastroenterology has cleared this patient for discharge. She is going to be seen in the office in 4 weeks. She is going to be discharged in stable condition. DISCHARGE PHYSICAL EXAMINATION: Vital signs: Temperature 98.9 degrees, heart rate 92, respiratory rate 16, blood pressure 132/59, O2 saturation 96% on room air. General examination: This is a 63-year-old female lying in bed, in no acute distress. Cardiovascular: S1, S2 heard. No murmurs, gallops, or rubs. Regular rate and rhythm. Respiratory: Clear bilaterally to auscultation. No work of breathing or using accessory muscles. Abdomen: Soft. Nontender to palpation. Bowel sounds present. No organomegaly. Extremities: No clubbing, cyanosis, or edema. Peripheral pulses present in both legs. Neurological: The patient is alert and oriented x3. Moves 4 extremities. DISCHARGE DISPOSITION: Home to self-care. FOLLOW UP: Dr. West in 4 weeks. DISCHARGE MEDICATIONS: 1. Protonix 40 mg 1 tablet p.o. b.i.d. 2. Valsartan hydrochlorothiazide 320/25 1 tablet p.o. daily. 3. Carvedilol 12.5 mg 1 tablet p.o. b.i.d.. cc: Kenton Liz MD
== END 2019-08-26 11:40 | disposition home or self-care (01) | DRG 921 ==
LOC: ED 21:12 → SUATTDRO 08-25 04:19 → 4N 08-25 04:19
PROVIDERS: ATTEND Internal Medicine